=== PATIENT | male | born 1965 | race Caucasian/White ===

== ENCOUNTER 2024-01-30 21:01 | Observation (INO) | payer MEDICARE, SELFPAY ==
[2024-01-30] VITALS (7 sets, daily range): BP systolic 99–177; BP diastolic 86–98; PULSE 98–116; RESP 12–22; TEMP 36.6; O2SAT 96–100
--- NOTE | ~2024-01-30 | XR_ITS ---
EXAMINATION: XR chest 1V portable DATE: 01/30/2024 21:25 INDICATION: Chest pain. TECHNIQUE: A single frontal view of the chest was obtained. COMPARISON: None. FINDINGS: There is mild atelectasis in left lower lung zone. No pleural effusion or pneumothorax. The heart size is normal. Median sternotomy wires and mediastinal surgical clips are seen, likely from p rior coronary artery bypass grafting. IMPRESSION: 1. Mild atelectasis in left lower lung zone. Reviewed, dictated and finalized at location E.
--- NOTE | ~2024-01-30 | CT_ITS ---
EXAMINATION: CTA chest PE abdomen pel DATE: 01/30/2024 22:19 INDICATION: Chest pain. Abdominal pain. TECHNIQUE: Computed tomography angiography (CTA) of the chest was performed with 100 mL Omnipaque-350 intravenous contrast timed to evaluate the pulmonary arteries. Coronal maximum intensity projection 3D-reconstructions were created by the technologist. Computed tomography (CT) of the abdomen and pelv is was performed with intravenous contrast. Automated exposure control and iterative reconstruction t echnique were employed. The dose-length product was 421.12 mGy-cm. COMPARISON: None. FINDINGS: CTA chest: There is mild emphysema. Calcified lung nodules and calcified hilar and mediastinal lymph nodes are consistent with old granulomatous disease. No pleural effusion. Cardiomegaly is noted. Ther e are coronary artery calcifications. There are changes of coronary artery bypass grafting. No perica rdial effusion. There is no pulmonary embolus. There is mild thoracic spondylosis. CT abdomen and pelvis: Calcifications in the liver and spleen are consistent with old granulomatous d isease. The gallbladder, pancreas, and adrenal glands are normal. There are cysts in the kidneys ana uring up to 2.6 cm on the right. There is calcified atherosclerosis of the aorta and many of the othe r arteries. There are bilateral inguinal hernias containing fat. There are no dilated loops of bowel. The appendix is not visualized. There are no pathologically enlarged lymph nodes. There is no free i ntraperitoneal fluid. There is severe lower lumbar spondylosis. IMPRESSION: 1. No pulmonary embolus. 2. Mild emphysema. 3. Bilateral inguinal hernias containing fat. Reviewed, dictated and finalized at location E.
--- NOTE | 2024-01-30 21:06 | ECG_ITS ---
SEE SCANNED COPY FOR CONFIRMED REPORT MTDD
[2024-01-30 21:28] LABS: Basophils Percent Auto 0.3 % (0.2-1.2); Hematocrit 46.4 % (42.0-52.0); Hemoglobin 15.2 g/dL (14.0-18.0); Immature Granulocyte Absolute 0.09 K/mm3 (0.00-0.031); Immature Granulocyte Percent A 0.6 % (0-0.5); Lymphocytes Absolute Auto 1.12 K/mm3 (0.9-3.2); Lymphocytes Percent Auto 7.6 % (18.3-44.2); Mean Corpuscular HGB Conc 32.8 g/dl (32-36); Mean Corpuscular Hemoglobin 27.7 pg (26-34); Mean Corpuscular Volume 84.7 fl (80-100); Mean Platelet Volume 9.6 fl (7.4-10.4); Monocytes Absolute Auto 0.9 K/mm3 (0.1-0.6); Monocytes Percent Auto 6.3 % (2.6-8.5); Neutrophils Absolute Auto 12.5 K/mm3 (1.3-6.7); Neutrophils Percent Auto 85.2 % (45.5-73.1); Platelet Count Result 312 k/mm3 (150-375); Red Blood Count 5.48 M/mm3 (4.6-6.20); Red Cell Distribution Width 15.9 % (11.5-14.5); White Blood Count 14.7 K/mm3 (4.5-10.0)
[2024-01-30 21:38] LABS: Prothrombin Time 13.6 Seconds (11.1-14.7)
[2024-01-30 21:39] LABS: Partial Thromboplastin Time 26.5 Seconds (22.3-36.8)
[2024-01-30 21:44] LABS: Alanine Aminotransferase 59 U/L (6-50); Albumin Level 4.9 g/dL (3.5-5.1); Alkaline Phosphatase 126 U/L (38-126); Anion Gap 11 mmol/L (4-12); Aspartate Amino Transferase 123 U/L (17-59); Bilirubin,Total 0.9 mg/dL (0.2-1.3); Blood Urea Nitrogen 25 mg/dL (9-20); Calcium 9.8 mg/dL (8.4-10.2); Carbon Dioxide 27 mmol/L (22-30); Chloride 105 mmol/L (98-107); Estimated CRCL calculation 50 ml/min; Estimated Glomerular Filt Rate > 60; Glucose 163 mg/dL (65-110); Lipase 63 U/L (23-300); Potassium 4.3 mmol/L (3.4-5.0); Sodium 143 mmol/L (137-145)
--- NOTE | 2024-01-30 22:46 | ED.GENADULT ---
HPI - General Adult General Chief complaint: Chest Pain Stated complaint: CP x 1 hour Time Seen by Provider: 01/30/24 21:07 History of Present Illness HPI narrative: Patient is a 58-year-old gentleman visiting from [place] that presents emergency department with chief complaint of abdominal pain and chest pain. Patient reports that he has been having pain in his abdomen for the last year reports that he has had a virtual visit is to see GI for endoscopy in the near future the patient reports he has had a quadruple bypass and today had an episode of chest discomfort and also had pain in the right upper quadrant. The patient states the pain is improved whenever he puts pressure on his abdomen states that this feels different from when he had his heart attack in the past Related Data Allergies Allergy/AdvReac Type Severity Reaction Status Date / Time No Known Allergies Allergy Verified 01/30/24 21:07 Review of Systems Review of Systems: A 10 system review of systems was completed on the patient and is negative except for what is stated in the HPI. Nursing and ancillary documentation was reviewed. Exam Narrative: GENERAL: Well-appearing, well-nourished, and in no acute distress. HEAD: Normocephalic, atraumatic. EYES: PERRLA and EOMI. ENT: Nares clear, no rhinorrhea or epistaxis. Mucous membranes moist. NECK: Supple. CHEST: Clear to auscultation. No respiratory distress. HEART: Regular rate and rhythm. No murmur heard. Normal peripheral pulses. ABDOMEN: Soft, mild tenderness to palpation right upper quadrant, nondistended, normal active bowel sounds. EXTREMITIES: Normal range of motion. No edema. SKIN: Warm, dry, no rash. There is a small bruise present in the periumbilical area NEURO: No focal deficits. Alert and oriented x3. PSYCH: Normal mood and affect. Course Vital Signs Vital signs: Vital Signs Temperature 36.6 C 01/30/24 21:02 Pulse Rate 116 H 01/30/24 21:02 Respiratory Rate 22 H 01/30/24 21:02 Blood Pressure 99/86 L 01/30/24 21:02 Pulse Oximetry 96 01/30/24 21:02 Oxygen Delivery Room Air 01/30/24 21:02 Temperature 36.6 C 01/30/24 21:02 Pulse Rate 109 H 01/30/24 23:00 Respiratory Rate 12 01/30/24 23:00 Blood Pressure 177/88 H 01/30/24 23:00 Pulse Oximetry 97 01/30/24 23:00 Oxygen Delivery Room Air 01/30/24 21:24 Medical Decision Making [facility] Narrative Medical decision making narrative: Differential diagnosis includes ACS, pulmonary embolism, intra-abdominal infection, gastritis, colitis, pancreatitis Laboratory studies were obtained on the patient showed white count of 14 7 electrolytes showed a creatinine 1.2 AST and ALT were slightly elevated at 123 and 59 respectively bilirubin was normal at 0.9 lipase was 63 troponin was elevated at 2.360 EKG showed no acute ischemic changes Chest x-ray showed no focal findings CTA chest with abdomen pelvis showed 1. No pulmonary embolus. 2. Mild emphysema. 3. Bilateral inguinal hernias containing fat. Vital Signs Vital Signs: Vital Signs Temperature 36.6 C 01/30/24 21:02 Pulse Rate 116 H 01/30/24 21:02 Respiratory Rate 22 H 01/30/24 21:02 Blood Pressure 99/86 L 01/30/24 21:02 Pulse Oximetry 96 01/30/24 21:02 Oxygen Delivery Room Air 01/30/24 21:02 Temperature 36.6 C 01/30/24 21:02 Pulse Rate 109 H 01/30/24 23:00 Respiratory Rate 12 01/30/24 23:00 Blood Pressure 177/88 H 01/30/24 23:00 Pulse Oximetry 97 01/30/24 23:00 Oxygen Delivery Room Air 01/30/24 21:24 Lab Data 01/30/24 21:22 01/30/24 21:22 Labs: Lab Results 01/30/24 Range/Units 21:22 WBC 14.7 H (4.5-10.0) K/mm3 RBC 5.48 (4.6-6.20) M/mm3 Hgb 15.2 (14.0-18.0) g/dL Hct 46.4 (42.0-52.0) % MCV 84.7 (80-100) fl MCH 27.7 (26-34) pg MCHC 32.8 (32-36) g/dl RDW 15.9 H (11.5-14.5) % Plt Count 312 (150-375) k/mm3 MPV 9.6 (7.4-10.4) fl Immat
[2024-01-30] MEDS: MORPHINE SULFATE (*CRX) 4 MG/ML INJ IV PUSH (22:54)
[2024-01-30] MEDS: HEPARIN SODIUM 5,000 UNITS/ML VIAL 4000 UNITS IV PUSH (22:56)
[2024-01-30] MEDS: HEPARIN SOD/D5W 100 UNITS/ML 25,000 UNITS/250 ML BAG 8 UNITS IV CONT (22:56)
--- NOTE | 2024-01-30 23:22 | PM.IMHP ---
H&P: HPI History of Present Illness Date/Time: 01/30/24 23:22 Chief Complaint: chest pain Narrative: History of Present Illness Date/Time: 01/31/24? 06:22 Chief Complaint: ?chest pain Narrative: ?this is a 58-year-old male who is in transit, presents to the emergency room due to chest pain, is right-sided.? Patient smokes 1 pack of cigarettes daily.? Denies any nausea ,vomiting, diarrhea.? Preliminary workup was significant for a troponin of 2.4, repeat was 2.2.? Patient has been admitted for further evaluation management and treatment. EXAMINATION: XR chest 1V portable DATE: 01/30/2024 21:25 INDICATION: Chest pain. TECHNIQUE: A single frontal view of the chest was obtained. COMPARISON: None. FINDINGS: There is mild atelectasis in left lower lung zone. No pleural effusion or pneumothorax. The heart size is normal. Median sternotomy wires and mediastinal surgical clips are seen, likely from prior coronary artery bypass grafting. IMPRESSION: 1. Mild atelectasis in left lower lung zone. EXAMINATION: CTA chest PE abdomen pel DATE: 01/30/2024 22:19 INDICATION: Chest pain. Abdominal pain. TECHNIQUE: Computed tomography angiography (CTA) of the chest was performed with 100 mL Omnipaque-350 intravenous contrast timed to evaluate the pulmonary arteries. Coronal maximum intensity projection 3D-reconstructions were created by the technologist. Computed tomography (CT) of the abdomen and pelvis was performed with intravenous contrast. Automated exposure control and iterative reconstruction technique were employed. The dose-length product was 421.12 mGy-cm. COMPARISON: None. FINDINGS: CTA chest: There is mild emphysema. Calcified lung nodules and calcified hilar and mediastinal lymph nodes are consistent with old granulomatous disease. No pleural effusion. Cardiomegaly is noted. There are coronary artery calcifications. There are changes of coronary artery bypass grafting. No pericardial effusion. There is no pulmonary embolus. There is mild thoracic spondylosis. CT abdomen and pelvis: Calcifications in the liver and spleen are consistent with old granulomatous disease. The gallbladder, pancreas, and adrenal glands are normal. There are cysts in the kidneys measuring up to 2.6 cm on the right. There is calcified atherosclerosis of the aorta and many of the other arteries. There are bilateral inguinal hernias containing fat. There are no dilated loops of bowel. The appendix is not visualized. There are no pathologically enlarged lymph nodes. There is no free intraperitoneal fluid. There is severe lower lumbar spondylosis. IMPRESSION: 1. No pulmonary embolus. 2. Mild emphysema. 3. Bilateral inguinal hernias containing fat. Review of Systems Review of Systems:?? ?chest pain right-sided ? PMFSH Social History Social History? Smoking packs per day:? 1 Smoking cigarettes per day:? 20.0 Years smoked:? 45 Smoking pack-years:? 45.00 Smoking status:? Heavy tobacco smoker Tobacco type:? cigarettes Alcohol intake:? never Substance use:? current Substance use type:? methamphetamine Do You Feel Safe in your Home?:? No Lack of Transportation:? No Lack of Food:? Sometimes True Current Housing:? I Do Not Have Housing Concerned About Future Housing:? YES Difficulty Paying Gas/Electric Bills:? YES Difficulty Paying for Meds:? YES Currently Unemployed:? YES Education:? Grade School Difficulty w/ Childcare or Family Care:? No Spiritual care concerns:? No Meds Home Medications and Allergies Home Medications ?Medication ?Instructions ?Recorded ?Confirmed ?Type Unable to Obtain Home Medications ? 01/31/24 01/31/24 History Allergies Allergy/AdvReac Type Severity Reaction Status Date / Time No Known Allergies Allergy ? ? Verified 01/30/24 21:07 Vital Signs Vital Signs - 24 hr ? 01/30/2401:57 01/30/2401:57 01/31/2404:56 Temperature 97.8 F ? ? Pulse Rate 102 H ? 109 H Re
[2024-01-30] MEDS: METOPROLOL TARTRATE INJ 5 MG/5 ML VIAL IV PUSH (23:26)
--- NOTE | 2024-01-30 23:49 | ECG_ITS ---
SEE SCANNED COPY FOR CONFIRMED REPORT MTDD
--- NOTE | 2024-01-30 23:54 | PC.NURSE ---
This RN went in to pt room to start another IV due to continuous heparin infusion. Pt initially refused. I educated the pt on the need for second IV. Pt agreed but then refused again upon seeing the IV needle. I again attempted to educate the patient on the importance of second IV. Pt is A&Ox4 and still refusing second IV. EDP aware.
--- NOTE | 2024-01-31 00:05 | PC.NURSE ---
Patient refused Dilaudid IVP and states I'm good on pain medication now .
[2024-01-31 00:23] VITALS: BP 157/96; PULSE 98; RESP 16; TEMP 36.4; O2SAT 94
--- NOTE | 2024-01-31 00:36 | ADMGEN ---
This patient, Josh Charles, was admitted to IMU Room 210-01 on 01/31/24 at 0025. Patient/family oriented to hospital policies and general routines including ID bracelet, bed and alarms, visiting hours, pain management, procedures, bathroom and other care routines, personal items, smoking policy, room service/diet, and visiting hours. Information on how to activate the Rapid Response Team has been discussed. Patient/Family are encouraged to report perceived risks to care and to ask questions if they do not understand what they are told or what they should do.
--- NOTE | 2024-01-31 00:36 | ADMGEN ---
This patient, Josh Charles, was admitted to IMU Room 210-01. Patient/family oriented to hospital policies and general routines including ID bracelet, bed and alarms, visiting hours, pain management, procedures, bathroom and other care routines, personal items, smoking policy, room service/diet, and visiting hours. Information on how to activate the Rapid Response Team has been discussed. Patient/Family are encouraged to report perceived risks to care and to ask questions if they do not understand what they are told or what they should do.
== END 2024-01-31 01:20 | disposition other institution (70) ==
LOC: ANHED 22:50 → ANHIMU 01-31 00:03
PROVIDERS: Admitting Provider Internal Medicine; Emergency Provider Emergency Medicine; Visit Provider Internal Medicine
DX: R07.9 Chest pain, unspecified (principal); I25.2 Old myocardial infarction; F17.210 Nicotine dependence, cigarettes, uncomplicated; F15.90 Other stimulant use, unspecified, uncomplicated; Z95.1 Presence of aortocoronary bypass graft; Z79.82 Long term (current) use of aspirin; Z79.02 Long term (current) use of antithrombotics/antiplatelets; Z79.84 Long term (current) use of oral hypoglycemic drugs
CPT/HCPCS: 36415; 71045; 71275; 74177; 80053; 83690; 84484; 85025; 85610; 85730; 93005; 96374; 96375; 99285; G0378; J1644; J2060; J2270; Q9967

== ENCOUNTER 2024-01-31 01:45 | Inpatient (IN) | payer MEDICARE, SELFPAY ==
[2024-01-31] VITALS (16 sets, daily range): BP systolic 99–172; BP diastolic 43–88; PULSE 77–109; RESP 16–20; TEMP 35.9–37.1; O2SAT 95–100
--- NOTE | 2024-01-31 | ECHO_ITS ---
Patient Info Name: Josh Charles Age: 58 years : 1965 Gender: Male Ht: 64 in Wt: 140 lbs BSA: 1.70 m2 HR: 83 bpm Heart Rhythm: Sinus Rhythm Technical Quality: Fair Exam Date: 01/31/2024 10:07 AM Exam Location: Echo Lab Patient Status: Inpatient Admit Date: 01/31/2024 Staff Ordering Physician: Oleg Chawla MD Tinsmith Helper: Leigh Ann Manley RDCS Attending Provider: Bay Wick MD Exam Type: CA echo doppler color flow Study Info Indications R07.89 - Other chest pain Complete two-dimensional, color flow and Doppler transthoracic echocardiogram is performed. Summary 1. Left ventricular chamber dimension is normal. 2. Left ventricular systolic function is mildly reduced, estimated at 40-45%. 3. Left ventricular septal wall motion is abnormal with septal motion related to a post-operative state. 4. Right ventricular chamber dimension is normal. 5. Right ventricular systolic function is reduced. 6. Left atrial chamber dimension is mildly enlarged. 7. There is mild tricuspid valve regurgitation. Left Ventricle Left ventricular chamber dimension is normal. Left ventricular systolic function is mildly reduced, estimated at 40-45%. There is no increased left ventricular wall thickness. Left ventricular septal wall motion is abnormal with septal motion related to a post-operative state. Right Ventricle Right ventricular chamber dimension is normal. Right ventricular systolic function is reduced. Left Atria Left atrial chamber dimension is mildly enlarged. Right Atria Right atrial chamber dimension is normal. Atrial Septum Intact interatrial septum visualized by color flow imaging. Aortic Valve The aortic valve is probable trileaflet. There is mild aortic valve sclerosis. There is no aortic valve regurgitation. Pulmonic Valve The pulmonic valve is not well visualized. There is trace pulmonic regurgitation. Mitral Valve There is trace mitral valve regurgitation. Tricuspid Valve There is mild tricuspid valve regurgitation. Pericardium/Pleural There is no pericardial effusion. Inferior Vena Cava Normal inferior vena cava with >50% collapse upon inspiration consistent with normal right atrial pressure, 3 mmHg. Aorta The aortic root size at the sinus of Valsalva is normal. Left Ventricular Outflow Tract Name Value Normal LVOT 2D LVOT Diameter 1.9 cm LVOT Doppler LVOT Peak Gradient 4 mmHg LVOT Mean Gradient 2 mmHg LVOT VTI 16 cm LVOT VTI/AV VTI Ratio 0.8 LVOT Stroke Volume 46 ml LVOT CO 3.6 l/min LVOT CI 2.1 l/min/m2 Pulmonic Valve Name Value Normal RVOT Doppler RVOT Peak Gradient 2 mmHg PV Doppler PV Peak Gradie
--- NOTE | ~2024-01-31 | CT_ITS ---
EXAMINATION: CT brain wo con DATE: 01/31/2024 18:07 INDICATION: Confusion. TECHNIQUE: Computed tomography (CT) of the head was performed without intravenous contrast. The mA wa s adjusted according to patient size. Iterative reconstruction technique was employed. The dose-lengt h product was 605.33 mGy-cm. COMPARISON: None FINDINGS: There is no intracranial hemorrhage, acute infarction, or abnormal intracranial mass lesion . The ventricles are normal in size. There is mild mucosal thickening in the paranasal sinuses. The o rbits are normal. The mastoid air cells are normal. IMPRESSION: 1. Normal brain. Reviewed, dictated and finalized at location E. IMPRESSION: 1. Normal brain.
[2024-01-31] MEDS: HEPARIN SOD/D5W 100 UNITS/ML 25,000 UNITS/250 ML BAG 8 UNITS IV CONT ×2 (02:15→09:05)
--- NOTE | 2024-01-31 02:15 | ECG_ITS ---
SEE SCANNED COPY FOR CONFIRMED REPORT MTDD
--- NOTE | 2024-01-31 04:53 | ED.GENADULT ---
HPI - General Adult General Chief complaint: Chest Pain History of Present Illness HPI narrative: Patient is a 58-year-old gentleman who presents emergency department chief complaint of wishes to be readmitted to the hospital patient was seen in the emergency department last night for chest pain was found have elevated troponin and was admitted for non ST elevation CA. The patient got anxious up stairs and decided to leave the hospital and signed out AMA and before leaving the hospital return to the emergency department and decided he wanted to stay. The patient does have prior history of methamphetamine use states that he last used yesterday morning reports he has been very anxious and paranoid since used at Related Data Allergies Allergy/AdvReac Type Severity Reaction Status Date / Time No Known Allergies Allergy Verified 01/30/24 21:07 Review of Systems Review of Systems: A 10 system review of systems was completed on the patient and is negative except for what is stated in the HPI. Nursing and ancillary documentation was reviewed. [facility] Social History Social History Smoking packs per day: 1 Smoking cigarettes per day: 20.0 Years smoked: 40 Smoking pack-years: 40.00 Smoking status: Current every day smoker Tobacco type: cigarettes Alcohol intake: never Substance use: current Substance use type: methamphetamine Do You Feel Safe in your Home?: Yes Lack of Transportation: No Lack of Food: Never True Current Housing: I Do Not Have Housing Concerned About Future Housing: YES Difficulty Paying Gas/Electric Bills: No Difficulty Paying for Meds: No Currently Unemployed: No Education: Grade School Difficulty w/ Childcare or Family Care: No Spiritual care concerns: No Exam Narrative: GENERAL: Well-appearing, well-nourished, and in no acute distress. HEAD: Normocephalic, atraumatic. EYES: PERRLA and EOMI. ENT: Nares clear, no rhinorrhea or epistaxis. Mucous membranes moist. NECK: Supple. CHEST: Clear to auscultation. No respiratory distress. HEART: Regular rate and rhythm. No murmur heard. Normal peripheral pulses. ABDOMEN: Soft, nontender, nondistended, normal active bowel sounds. EXTREMITIES: Normal range of motion. No edema. SKIN: Warm, dry, no rash. NEURO: No focal deficits. Alert and oriented x3. PSYCH: Anxious mood and affect. Medical Decision Making MDM Narrative Medical decision making narrative: Differential diagnosis includes ACS, substance abuse Repeat EKG showed no acute ischemic changes Repeat troponin shows no change in the elevated troponin The patient was restarted on heparin drip and was readmitted to the hospital Discharge Plan Discharge Clinical Impression: Non-ST elevation CA (NSTEMI) Patient Disposition: Still a Patient Condition: Stable Follow-up/Referrals: PHYSICIAN,FORENSIC INVESTIGATOR [Primary Care Provider] - Time of Disposition: 04:56
--- NOTE | 2024-01-31 04:54 | PC.NURSE ---
pt having auditory hallucinations at this time. pt came rushing into nurses station while still attached to IV and monitor. This RN and another RN unattached pt. pt states there are people coming through the ceiling to kill him with guns. pt reassured he is safe at this hospital. see downtime charting for prior incidents since pt second arrival to ED.
--- NOTE | 2024-01-31 05:11 | PC.NURSE ---
Pt continuously coming outside of room and pulling on IV line. Pt refuses to get reconnected to heparin drip. EDP Dr. Mccann and ER maria c Herman made aware.
[2024-01-31] MEDS: LORazepam INJ (*CRX) 2 MG/ML VIAL IV PUSH (05:12)
--- NOTE | 2024-01-31 06:22 | PM.IMHP ---
H&P: HPI History of Present Illness Date/Time: 01/31/24 06:22 Chief Complaint: chest pain Narrative: this is a 58-year-old male who is in transit, presents to the emergency room due to chest pain, is right-sided. Patient smokes 1 pack of cigarettes daily. Denies any nausea ,vomiting, diarrhea. Preliminary workup was significant for a troponin of 2.4, repeat was 2.2. Patient has been admitted for further evaluation management and treatment. EXAMINATION: XR chest 1V portable DATE: 01/30/2024 21:25 INDICATION: Chest pain. TECHNIQUE: A single frontal view of the chest was obtained. COMPARISON: None. FINDINGS: There is mild atelectasis in left lower lung zone. No pleural effusion or pneumothorax. The heart size is normal. Median sternotomy wires and mediastinal surgical clips are seen, likely from prior coronary artery bypass grafting. IMPRESSION: 1. Mild atelectasis in left lower lung zone. EXAMINATION: CTA chest PE abdomen pel DATE: 01/30/2024 22:19 INDICATION: Chest pain. Abdominal pain. TECHNIQUE: Computed tomography angiography (CTA) of the chest was performed with 100 mL Omnipaque-350 intravenous contrast timed to evaluate the pulmonary arteries. Coronal maximum intensity projection 3D-reconstructions were created by the technologist. Computed tomography (CT) of the abdomen and pelvis was performed with intravenous contrast. Automated exposure control and iterative reconstruction technique were employed. The dose-length product was 421.12 mGy-cm. COMPARISON: None. FINDINGS: CTA chest: There is mild emphysema. Calcified lung nodules and calcified hilar and mediastinal lymph nodes are consistent with old granulomatous disease. No pleural effusion. Cardiomegaly is noted. There are coronary artery calcifications. There are changes of coronary artery bypass grafting. No pericardial effusion. There is no pulmonary embolus. There is mild thoracic spondylosis. CT abdomen and pelvis: Calcifications in the liver and spleen are consistent with old granulomatous disease. The gallbladder, pancreas, and adrenal glands are normal. There are cysts in the kidneys measuring up to 2.6 cm on the right. There is calcified atherosclerosis of the aorta and many of the other arteries. There are bilateral inguinal hernias containing fat. There are no dilated loops of bowel. The appendix is not visualized. There are no pathologically enlarged lymph nodes. There is no free intraperitoneal fluid. There is severe lower lumbar spondylosis. IMPRESSION: 1. No pulmonary embolus. 2. Mild emphysema. 3. Bilateral inguinal hernias containing fat. Review of Systems Review of Systems: chest pain right-sided PMFSH Social History Social History Smoking packs per day: 1 Smoking cigarettes per day: 20.0 Years smoked: 45 Smoking pack-years: 45.00 Smoking status: Heavy tobacco smoker Tobacco type: cigarettes Alcohol intake: never Substance use: current Substance use type: methamphetamine Do You Feel Safe in your Home?: No Lack of Transportation: No Lack of Food: Sometimes True Current Housing: I Do Not Have Housing Concerned About Future Housing: YES Difficulty Paying Gas/Electric Bills: YES Difficulty Paying for Meds: YES Currently Unemployed: YES Education: Grade School Difficulty w/ Childcare or Family Care: No Spiritual care concerns: No Meds Home Medications and Allergies Home Medications Medication Instructions Recorded Confirmed Type Unable to Obtain Home Medications 01/31/24 01/31/24 History Allergies Allergy/AdvReac Type Severity Reaction Status Date / Time No Known Allergies Allergy Verified 01/30/24 21:07 Vital Signs Vital Signs - 24 hr 01/31/24 01:57 01/31/24 01:57 01/31/24 04:56 Temperature 97.8 F Pulse Rate 102 H 109 H Respiratory Rate 20 18 Blood Pressure 172/88 H Pulse Oximetry 100 97 97
--- NOTE | 2024-01-31 07:00 | PC.NURSE ---
Heparin gtt still off due to patient condition.
--- NOTE | 2024-01-31 07:11 | PHAR ---
Home medications identified and returned to IMU nursing unit. Duloxetine 60mg capsules, Nitroglycerin 0.4mg SL tablets, Clopidogrel 75mg tablets
--- NOTE | 2024-01-31 08:17 | PC.NURSE ---
Dr. Chawla updated on patient condition, RN to restart Heparin gtt.
--- NOTE | 2024-01-31 08:20 | PM.IMPN ---
Progress Note: A&P Assessment and Plan (1) Non-ST elevation IA (NSTEMI): Code(s): I21.4 - Non-ST elevation (NSTEMI) myocardial infarction Status: Acute (2) Tobacco dependence: Code(s): F17.200 - Nicotine dependence, unspecified, uncomplicated Status: Acute Plan Patient is a 58-year-old gentleman who presents emergency department with chief complaint of chest pain found to have non STEMI left AMA but comes right back to be readmitted to the hospital. Patient was seen in the emergency department last night for chest pain was found have elevated troponin and was admitted for non ST elevation IA.? The patient got anxious up stairs and decided to leave the hospital and signed out AMA and before leaving the hospital return to the emergency department and decided he wanted to stay.? The patient does have prior history of methamphetamine use states that he last used yesterday morning reports he has been very anxious and paranoid. Chest x-ray showed mild atelectasis lower lung zone. CTA chest abdomen pelvis showed no PE mild emphysema and bilateral inguinal hernias containing. ekg with no st t changes Troponin trend 2.36-2.4-2.26 Received 325 mg aspirin Continue aspirin 81 mg daily check lipid profile check echocardiogram cardiology consult heparin drip. Check A1c History of coronary disease status post CABG in the past Anxiety and methamphetamine use received Ativan. Ativan p.r.n. will be ordered Homeless From out of town DVT prophylaxis heparin drip Code status full code Subjective Date/time seen: 01/31/24 08:20 Interval history: History and chart reviewed. Discussed the nursing staff. No further chest pain reported. Has sitter at bedside and confused of when he is at. Does report he came to [place] to visit a friend. Did admit to doing methamphetamine last night. Review of Systems Review of Systems: All systems reviewed & are unremarkable except as noted in HPI and below Exam Narrative: GENERAL: Well-appearing, well-nourished, and in no acute distress. HEAD: Normocephalic, atraumatic. EYES: PERRLA and EOMI. ENT: Nares clear, no rhinorrhea or epistaxis.? Mucous membranes moist. NECK: Supple. CHEST: Clear to auscultation.? No respiratory distress. HEART: Regular rate and rhythm.? No murmur heard.? Normal peripheral pulses. ABDOMEN: Soft, nontender, nondistended, normal active bowel sounds. EXTREMITIES: Normal range of motion.? No edema. SKIN: Warm, dry, no rash. NEURO: No focal deficits.? Alert and conversant. Confused. PSYCH:? Anxious mood and affect. Objective Data Vital Signs Vital Signs: Vital Signs - 24 hr 01/31/24 01:57 01/31/24 01:57 01/31/24 04:56 Temperature 97.8 F Pulse Rate 102 H 109 H Respiratory Rate 20 18 Blood Pressure 172/88 H Pulse Oximetry 100 97 97 Oxygen Delivery Room Air Room Air 01/31/24 06:00 01/31/24 06:36 01/31/24 08:12 Temperature 98.4 F Pulse Rate 100 100 86 Respiratory Rate 18 16 Blood Pressure 99/43 L Pulse Oximetry 97 99 Oxygen Delivery Room Air 01/31/24 08:18 Temperature Pulse Rate Respiratory Rate Blood Pressure 121/73 Pulse Oximetry Oxygen Delivery Intake/Output Intake/Output: Intake & Output 01/28/24 01/29/24 01/30/24 01/31/24 23:59 23:59 23:59 23:59 Intake Total 23.7 Balance 23.7 Meds/Results Medications: Active Medications Generic Name Dose Route Start Last Admin Trade Name Freq PRN Reason Stop Dose Admin Acetaminophen 650 mg 01/31/24 04:57 Acetaminophen 325 Mg Tablet PO Q4H PRN Mild Pain (1-3) or Fever Aspirin 81 mg 01/31/24 09:00 Aspirin 81 Mg Enteric Tablet PO [facility] Heparin Sodium (Porcine) 4,000 units 01/31/24 04:58 Heparin Sodium 5,000 Units/Ml Vial IV PUSH PRN PRN aPTT less than 55 seconds Heparin Sodium (Porcine) 2,500 units 01/31/24 04:58 Heparin Sodium 5,000 Units/Ml Vial IV PUSH PRN PRN aPTT 55 - 70 seco
[2024-01-31 09:05] LABS: Basophils Absolute Auto 0.1 K/mm3 (0.0-0.1); Basophils Percent Auto 0.4 % (0.2-1.2); Eosinophils Percent Auto 0.2 % (0-4.4); Hematocrit 45.9 % (42.0-52.0); Hemoglobin 14.6 g/dL (14.0-18.0); Immature Granulocyte Absolute 0.08 K/mm3 (0.00-0.031); Immature Granulocyte Percent A 0.6 % (0-0.5); Lymphocytes Absolute Auto 1.89 K/mm3 (0.9-3.2); Lymphocytes Percent Auto 14.8 % (18.3-44.2); Mean Corpuscular HGB Conc 31.8 g/dl (32-36); Mean Corpuscular Hemoglobin 27.9 pg (26-34); Mean Corpuscular Volume 87.6 fl (80-100); Mean Platelet Volume 9.6 fl (7.4-10.4); Monocytes Absolute Auto 1.1 K/mm3 (0.1-0.6); Monocytes Percent Auto 8.6 % (2.6-8.5); Neutrophils Absolute Auto 9.7 K/mm3 (1.3-6.7); Neutrophils Percent Auto 75.4 % (45.5-73.1); Platelet Count Result 265 k/mm3 (150-375); Red Blood Count 5.24 M/mm3 (4.6-6.20); Red Cell Distribution Width 16.1 % (11.5-14.5); White Blood Count 12.8 K/mm3 (4.5-10.0)
[2024-01-31] MEDS: HEPARIN SODIUM 5,000 UNITS/ML VIAL 4000 UNITS IV PUSH (09:05)
[2024-01-31 09:17] LABS: Cholesterol 202 mg/dL (0-200); HDL Direct 62 mg/dL; Triglycerides 158 mg/dL (<150)
[2024-01-31] MEDS: ASPIRIN 81 MG ENTERIC TABLET PO (09:19)
[2024-01-31 09:26] LABS: Prothrombin Time 13.8 Seconds (11.1-14.7)
[2024-01-31 09:28] LABS: LDL Cholesterol Direct 113 mg/dL; Partial Thromboplastin Time 28.1 Seconds (22.3-36.8)
--- NOTE | 2024-01-31 10:10 | PC.NURSE ---
Report given to Gabriela Martinez RN.
[2024-01-31 10:28] LABS: Hemoglobin A1C 7.5 % (<5.7)
--- NOTE | 2024-01-31 11:53 | PM.CNCAR ---
Assessment and Plan Assessment and plan (1) Non-ST elevation [place] (NSTEMI): Code(s): I21.4 - Non-ST elevation (NSTEMI) myocardial infarction Status: Acute Assessment and Plan: Patient's chest pain is quite atypical (right-sided lasting for a few minutes), and has not recurred. In setting of meth use. Troponins are elevated, however, they are flat (no rise and fall pattern typically seen with an acute coronary syndrome). Echocardiogram ordered and pending. Please obtain records from patient's joint cutter (patient states he sees a joint cutter at [facility] in [place]). No plans for cardiac catheterization at this time, recommend medical management. Continue Heparin drip, ASA, statin. Further recommendations pending results of echocardiogram, review of prior records. (2) Coronary artery disease: Code(s): I25.10 - Atherosclerotic heart disease of enterprise coronary artery without angina pectoris Status: Acute Assessment and Plan: As above. Does not take ASA or statin at home per the patient. Agree with starting ASA and high intensity statin. (3) Tobacco dependence: Code(s): F17.200 - Nicotine dependence, unspecified, uncomplicated Status: Acute Assessment and Plan: Counseled on smoking cessation. (4) Methamphetamine use: Code(s): F15.10 - Other stimulant abuse, uncomplicated Status: Acute Assessment and Plan: Encouraged abstinence. Plan Recommendations and plan discussed with Hospitalist. History of Present Illness History of Present Illness Consult date/time: 01/31/24 11:53 Requesting physician: Juarez Mccann MD Consult reason: chest pain Reason For Visit: NSTEMI Narrative: We are consulted for chest pain and elevated troponins. This is a 58 year old male with CAD s/p CABG, tobacco use, methamphetamine use who presented to [facility] for right sided chest pain. Patient initially presented on 01/29, and then left AMA, and then came back to the ED again. Patient is currently requiring a sitter. Patient states he lives in [place], but is here visiting a friend. Reports that he underwent CABG 10 years ago in [place], [place]. Currently sees a joint cutter at [facility] in [place]. Patient states that he chest pain was right sided, and lasted for 7-8 minutes. Occurred at rest. No recurrence of chest pain since then. Otherwise feeling okay. He does report to smoking meth yesterday morning. States he usually only does meth about once a year, but he did heavily use it 4 weeks ago. Smokes 1PPD. Has been smoking since age 11. Does not take ASA or statin at home. Cannot recall his home meds completely. Workup shows: WBC 14.7 Troponns are 2.360, 2.400, 2.260. EKGs with sinus rhythm, RBBB. No prior EKGs in our system. LDL 113. UDS pending. CTA chest/abdomen/pelvis negative for PE, mild emphysema, bilateral inguinal hernias containing fat. Review of Systems Review of Systems: All systems reviewed & are unremarkable except as noted in HPI and below (HPI) [facility] Social History Social History Smoking packs per day: 1 Smoking cigarettes per day: 20.0 Years smoked: 45 Smoking pack-years: 45.00 Smoking status: Heavy tobacco smoker Tobacco type: cigarettes Alcohol intake: never Substance use: current Substance use type: methamphetamine Do You Feel Safe in your Home?: No Lack of Transportation: No Lack of Food: Sometimes True Current Housing: I Do Not Have Housing Concerned About Future Housing: YES Difficulty Paying Gas/Electric Bills: YES Difficulty Paying for Meds: YES Currently Unemployed: YES Education: Grade School Difficulty w/ Childcare or Family Care: No Spiritual care concerns: No Meds Home Medications and Allergies Home Medications Medication Instructions Recorded Confirmed Type Unable to Obtain Home Medications 01/31/24
[2024-01-31 12:32] LABS: Thyroid Stimulating Hormone 0.103 uIU/mL (0.465-4.680)
[2024-01-31] MEDS: LORazepam INJ (*CRX) 2 MG/ML VIAL 1 MG IV PUSH (13:18)
[2024-01-31] MEDS: HALOPERIDOL LACTATE 5 MG/ML VIAL 2.5 MG IM ×2 (13:45→13:46)
[2024-01-31] MEDS: ACETAMINOPHEN 325 MG TABLET 650 MG PO (23:30)
[2024-02-01] VITALS (10 sets, daily range): BP systolic 108–130; BP diastolic 70–84; PULSE 74–92; RESP 12–20; TEMP 36.1–36.6; O2SAT 89–100
[2024-02-01 00:35] LABS: Barbiturate Screen Urine Negative (Negative); Benzodiazepines Screen Urine Negative (Negative); Cannabinoid Screen Urine Negative (Negative); Cocaine Screen Urine Negative (Negative); Methadone Screen Urine Negative (Negative); Opiate Screen Urine Positive (Negative); Phencyclidine Screen Urine Negative (Negative)
[2024-02-01 01:00] LABS: Amphetamine Screen Urine Positive (Negative)
[2024-02-01 04:20] LABS: Basophils Absolute Auto 0.1 K/mm3 (0.0-0.1); Basophils Percent Auto 0.8 % (0.2-1.2); Eosinophils Absolute Auto 0.3 K/mm3 (0-0.3); Eosinophils Percent Auto 3.1 % (0-4.4); Hematocrit 43.2 % (42.0-52.0); Hemoglobin 14.2 g/dL (14.0-18.0); Immature Granulocyte Absolute 0.05 K/mm3 (0.00-0.031); Immature Granulocyte Percent A 0.6 % (0-0.5); Lymphocytes Absolute Auto 2.24 K/mm3 (0.9-3.2); Lymphocytes Percent Auto 25.6 % (18.3-44.2); Mean Corpuscular HGB Conc 32.9 g/dl (32-36); Mean Corpuscular Volume 85.2 fl (80-100); Mean Platelet Volume 9.2 fl (7.4-10.4); Monocytes Percent Auto 11.4 % (2.6-8.5); Neutrophils Absolute Auto 5.1 K/mm3 (1.3-6.7); Neutrophils Percent Auto 58.5 % (45.5-73.1); Platelet Count Result 241 k/mm3 (150-375); Red Blood Count 5.07 M/mm3 (4.6-6.20); Red Cell Distribution Width 15.9 % (11.5-14.5); White Blood Count 8.8 K/mm3 (4.5-10.0)
[2024-02-01 04:38] LABS: Alanine Aminotransferase 106 U/L (6-50); Albumin Level 4.1 g/dL (3.5-5.1); Alkaline Phosphatase 91 U/L (38-126); Anion Gap 2 mmol/L (4-12); Aspartate Amino Transferase 270 U/L (17-59); Bilirubin,Total 0.8 mg/dL (0.2-1.3); Blood Urea Nitrogen 29 mg/dL (9-20); Carbon Dioxide 30 mmol/L (22-30); Chloride 102 mmol/L (98-107); Estimated CRCL calculation 54 ml/min; Estimated Glomerular Filt Rate > 60; Glucose 138 mg/dL (65-110); Magnesium 2.3 mg/dL (1.6-2.3); Potassium 4.2 mmol/L (3.4-5.0); Sodium 134 mmol/L (137-145)
[2024-02-01] MEDS: ASPIRIN 81 MG ENTERIC TABLET PO (09:15)
--- NOTE | 2024-02-01 11:44 | PC.NURSE ---
Returned patients home meds, money and cards to patient after discharge note was put in.
--- NOTE | 2024-02-01 12:03 | PM.DS ---
DS: Admitting Diagnosis Discharge Date 02/01/2024 Admitting Diagnosis Chest pain DS: Discharge Diagnosis Discharge Diagnosis (1) Non-ST elevation NJ (NSTEMI): Code(s): I21.4 - Non-ST elevation (NSTEMI) myocardial infarction Status: Acute (2) Tobacco dependence: Code(s): F17.200 - Nicotine dependence, unspecified, uncomplicated Status: Acute DS: Summary Hospital Course Hospital Course: Patient is a 58-year-old gentleman who presents emergency department with chief complaint of chest pain found to have non STEMI left AMA but comes right back to be readmitted to the hospital.? Patient was seen in the emergency department last night for chest pain was found have elevated troponin and was admitted for non ST elevation NJ.? The patient got anxious up stairs and decided to leave the hospital and signed out AMA and before leaving the hospital return to the emergency department and decided he wanted to stay.? The patient does have prior history of methamphetamine use states that he last used yesterday morning reports he has been very anxious and paranoid.? Chest x-ray showed mild atelectasis lower lung zone.? CTA chest abdomen pelvis showed no PE mild emphysema and bilateral inguinal hernias containing. ekg with no st t changes Troponin on admission or elevated suggesting non ST elevation NJ. trend 2.36-2.4-2.26. He was treated with heparin drip. There was no further recurrence of chest pain. He received 325 mg of aspirin. Echocardiogram was obtained which showed mildly low EF at 40-45% abnormal septal wall motion due to prior bypass surgery. Cardiology was consulted. Medical management were recommended. He will be on aspirin and Plavix until follow-up with his architectural modeler who is in [place]. He is also on lisinopril prior to admission. Not on beta-conner which will be recommended at this time. If the started on beta-conner metoprolol succinate 25 mg daily. Is advised to follow-up with his architectural modeler once he gets back to [place]. Subsequent to admission on 01/31/2024 he had episode of agitation and associated hallucinations which were treated with antipsychotics. His hallucination and/or mild psychotic episode most likely related to his methamphetamine use. This was stabilized and resolved by the time of discharge. His LDL was 113. He will continue atorvastatin 80 mg at bedtime. A1c was at 7.5. He will follow up with PCP with regard to his diabetes management. He is currently on metformin 1000 mg b.i.d.. History of coronary disease status post CABG in the past Anxiety and methamphetamine use received Ativan.? Ativan p.r.n. will be ordered for agitation Homeless From out of town DVT prophylaxis heparin drip Code status full code Time Spent with Patient Time attestation: Total time spent providing and/or coordinating discharge services: 35 minutes Exam Narrative: GENERAL: Well-appearing, well-nourished, and in no acute distress. HEAD: Normocephalic, atraumatic. EYES: PERRLA and EOMI. ENT: Nares clear, no rhinorrhea or epistaxis.? Mucous membranes moist. NECK: Supple. CHEST: Clear to auscultation.? No respiratory distress. HEART: Regular rate and rhythm.? No murmur heard.? Normal peripheral pulses. ABDOMEN: Soft, nontender, nondistended, normal active bowel sounds. EXTREMITIES: Normal range of motion.? No edema. SKIN: Warm, dry, no rash. NEURO: No focal deficits.? Alert and conversant. Confused. PSYCH:? Anxious mood and affect. DS: Data Data Completed and Pending Completed studies during hospitalization: Exam Type: ? ? CA echo doppler color flow Study Info Indications ? ? R07.89 - Other chest pain Complete two-dimensional, color flow and Doppler transthoracic echocardiogram is performed. Account #: ? ? [id number] Summary ? 1. Left ventricular chamber dimension is normal. ? 2. Left ventricular systolic function is mildly reduced, estimated at 40-45%. ? 3. Left ventricular septal wall
[2024-02-01] MEDS: ACETAMINOPHEN 325 MG TABLET 650 MG PO (13:17)
== END 2024-02-01 13:26 | disposition home or self-care (01) | DRG 190 ==
LOC: ANHED 04:57 → ANHIMU 05:09
PROVIDERS: Internal Medicine; Admitting Provider Internal Medicine; Emergency Provider Emergency Medicine; Visit Provider Internal Medicine
DX: I21.4 Non-ST elevation (NSTEMI) myocardial infarction (principal); I25.10 Atherosclerotic heart disease of native coronary artery without angina pectoris; R44.3 Hallucinations, unspecified; R45.1 Restlessness and agitation; F15.90 Other stimulant use, unspecified, uncomplicated; F17.210 Nicotine dependence, cigarettes, uncomplicated; Z95.1 Presence of aortocoronary bypass graft
CPT/HCPCS: 36415; 70450; 71045; 71275; 74177; 80053; 80061; 80307; 83036; 83690; 83735; 84443; 84484; 85025; 85610; 85730; 93005; 93306; 96365; 96366; 96374; 96375; 99285; A9270; G0378; J1630; J1644; J2060; J2270; Q9967